=== PATIENT | female | born 1940 | race Caucasian/White ===

== ENCOUNTER → 2017-04-19 10:21 | Outpatient (CLI) | payer MEDICARE, SELFPAY ==
--- NOTE | 2017-04-19 10:43 | MR_ITS ---
MR humerus LT wo/w con CLINICAL INDICATION: Left upper arm mass, lipoma, evaluate for muscular involvement ITS.REASON: LEFT UPPER ARM MASS ORDERING PHYSICIAN: Ann Holguin MD PATIENT AGE: 76 years TECHNIQUE: Multiplanar multiecho sequences are performed without and with gadolinium enhancement. COMPARISON: None FINDINGS: Fat signal intensity which measures 6 cm cephalad to caudad, 2.5 cm transverse, and 1.9 cm AP is present within the left shoulder. This involves the midanterior aspect of the deltoid muscle and is contained by fascia laterally. No abnormal enhancement apparent. The fat has homogeneous signal intensity consistent with a lipoma. No other significant anomalies are evident. No bony involvement. No abnormal fluid collections. No abnormal enhancement. 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 No malignant features evident
[2017-04-19 10:48] LABS: Blood Urea Nitrogen 21 mg/dL (7-18); Creatinine,Serum 0.83 mg/dL (0.55-1.02); Estimated Glomerular Filt Rate 67 ml/min (>60); GFR (African American) 81 ML/MIN (>60)
== END ==
PROVIDERS: Visit Provider Surgery Surgical Oncology
DX: R22.32 Localized swelling, mass and lump, left upper limb (principal)
CPT/HCPCS: 36415; 73220; 82565; 84520; A9576

== ENCOUNTER → 2019-04-27 07:55 | Outpatient (CLI) | payer SELFPAY ==
--- NOTE | 2019-04-27 08:05 | CT_ITS ---
PROCEDURE: CT HEART W CALCIUM SCORE CLINICAL HISTORY: SCREENING Family history of heart disease COMPARISON: No exams were available for comparison TECHNIQUE: Axial images obtained with sagittal and coronal reformats. All CT scans at the facility use one or more dose reduction, viz: automated exposure control, ma/kV adjustment per patient size (including targeted exams where dose is matched to indication, i.e. head), or iterative reconstruction technique. FINDINGS: The coronary artery calcium score is 69 indicating mild calcific plaque burden with moderate cardiovascular disease risk. Incidental findings include changes of COPD with scarring in the lung bases. IMPRESSION: Mild calcific plaque burden with moderate cardiovascular disease risk Dictated by: Jose Enrique Chilel MD 04/27/2019 14:37 Electronically signed by Jose Enrique Chiell MD in [place] 04/27/2019 14:37
== END ==
PROVIDERS: PCP Family Medicine; Visit Provider Internal Medicine Cardiovascular Disease
DX: Z13.6 Encounter for screening for cardiovascular disorders (principal)
CPT/HCPCS: 75571

== ENCOUNTER 2022-10-26 10:42 | Emergency (ER) | payer MEDICARE, SELFPAY ==
--- NOTE | 2022-10-26 11:17 | XR_ITS ---
PROCEDURE INFORMATION: Exam: XR Right Wrist Exam date and time: 10/26/2022 11:26 AM Age: 82 years old Clinical indication: Pain; Wrist; Right; Additional info: Fall TECHNIQUE: Imaging protocol: Radiologic exam of the right wrist. Views: 3 or more views. COMPARISON: CR XR HAND RT MIN 3V 10/26/2022 11:23 AM FINDINGS: Bones/joints: Diffuse osteopenia is seen. Oblique mildly displaced 4th metacarpal fracture is noted. Soft tissues: Moderate soft tissues is seen around the fracture. IMPRESSION: 1. Diffuse osteopenia. Oblique mildly displaced 4th metacarpal fracture is noted. 2. Moderate soft tissues around the fracture.
--- NOTE | 2022-10-26 11:17 | XR_ITS ---
PROCEDURE INFORMATION: Exam: XR Right Hand Exam date and time: 10/26/2022 11:23 AM Age: 82 years old Clinical indication: Pain; Wrist; Right; Additional info: Fall TECHNIQUE: Imaging protocol: Radiologic exam of the right hand. Views: 3 or more views. COMPARISON: No relevant prior studies available. FINDINGS: Bones/joints: Diffuse osteopenia is present. Mildly displaced oblique fracture involving the 4th metacarpal. 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 Old 5th metacarpal fracture is noted. Soft tissues: Mild soft tissue swelling is seen around the fracture. IMPRESSION: 1. Diffuse osteopenia is present. 2. Mildly displaced oblique fracture involving the 4th metacarpal. Mild soft tissue swelling is seen around the fracture. 3. 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 4. Old 5th metacarpal fracture.
--- NOTE | 2022-10-26 11:17 | XR_ITS ---
PROCEDURE INFORMATION: Exam: XR Right Forearm Exam date and time: 10/26/2022 11:28 AM Age: 82 years old Clinical indication: Pain; Wrist; Right; Additional info: Fall TECHNIQUE: Imaging protocol: Radiologic exam of the right forearm. Views: 2 views. COMPARISON: CR XR WRIST RT MIN 3V 10/26/2022 11:26 AM FINDINGS: Bones/joints: Diffuse osteopenia is present. Soft tissues: Normal. IMPRESSION: 1. No acute findings. 2. Diffuse osteopenia.
[2022-10-26 11:20] VITALS: BP 132/81; PULSE 69; RESP 18; TEMP 36.7; O2SAT 97; BMI 25.1
--- NOTE | 2022-10-26 11:50 | EXP.UTC ---
Discharge Plan Disposition Patient Disposition: Home, Self-Care Condition: Good Prescriptions Prescriptions: No Action ibuprofen 600 MG Tablet 600 mg PO Q6HP PRN (Reason: Moderate Pain) Qty: 20 0RF Referrals Follow up/Referrals: Balaji Reynolds MD [Primary Care Provider] - See instructions Michel Guzmán DO [Staff Physician] - See instructions Activity Restrictions/Add. Instructions Additional Instructions/Restrictions: Rest the extremity, apply ice for 15 minutes as tolerated three or four times per day, Elevate the extremity as tolerated while you are resting. Take ibuprofen for pain if you can take it. If not, then take tylenol. Follow up with Dr. Guzmán (orthopedics). I put in a referral but you need to call his office and schedule an appointment. His office phone number will be on this paperwork. Follow up with your regular doctor. GO TO THE ER FOR ANY WORSENING SYMPTOMS Make sure you follow up with your eye doctor as we discussed. I recommend you see your primary care physician too. Clinical Impressions Clinical Impression: Fracture of fourth metacarpal bone of right hand, Hand fracture, right Instructions Patient Instructions: DI for a Hand Fracture, How to Take Care of Your Splint, Hand Fracture Discharge ED Provider: Macario Oro [facility] [place] HPI General Stated complaint: AO9/1@home, pain in Rt wrist Time Seen by Provider: 10/26/22 11:50 History of Present Illness Provider Complaint: She states that she tripped and fell on 10/22. Since then she has had right hand pain, swelling and bruising. She also has had right wrist pain. She denies any other injuries. Related Data Previous Rx's Medication Instructions Recorded ibuprofen 600 mg tablet 600 mg PO Q6HP PRN Moderate Pain 05/11/18 ##20 Allergies Allergy/AdvReac Type Severity Reaction Status Date / Time iodine Allergy Verified 10/26/22 12:21 [facility] Disclaimer: The information contained in this section may have been updated after the patient was seen, as this information can be updated by other users. Social History Smoking Status: Never smoker alcohol intake: never current occupational status: retired Travel in the last 8 weeks: None ROS Obtained: Yes All systems reviewed & no additional complaints except as documented Constitutional Constitutional: Denies chills and Denies fever(s) Eyes Eyes: Denies eye discharge ENT Ears, Nose, Mouth, and Throat: Denies dizziness, Denies otalgia and Denies sore throat Cardiovascular Cardiovascular: Denies chest pain Respiratory Respiratory: Denies shortness of breath, Denies chest congestion, Denies cough, Denies stridor and Denies wheezing Gastrointestinal Gastrointestingal: Denies nausea or vomiting Musculoskeletal Musculoskeletal: Reports as per HPI Integumentary/Breasts Skin/Breast: Reports as per HPI, Denies redness, Denies rash and Denies wounds Neurologic Neurologic: Denies dizziness and Denies paresthesias Allergic/Immunologic Allergic/Immunologic: Denies wheezing Physical Exam General General appearance: alert and in no apparent distress Head Head exam: atraumatic, normocephalic and normal inspection Eye Eye exam: Present normal appearance, PERRL and EOMI ENT ENT exam: Present normal exam, normal oropharynx, mucous membranes moist, TM's normal bilaterally and normal external ear exam Neck Neck exam: Present normal inspection, full ROM and trachea midline; Absent meningismus or lymphadenopathy Chest Chest inspection: Present normal inspection and symmetric chest wall rise; Absent tenderness Respiratory Respiratory exam: Present normal lung sounds bilaterally; Absent respiratory distress Cardiovascular Cardiovascular exam: Present regular rate and normal rhythm; Absent JVD Abdominal Exam Abdominal exam: Present soft and normal bowel sounds; Absent distention, tenderness or guarding Extremities Exam Extre
[2022-10-26 13:19] VITALS: BP 132/81; PULSE 69; RESP 18; TEMP 36.7; O2SAT 97
== END 2022-10-26 13:00 | disposition home or self-care (01) ==
PROVIDERS: Emergency Provider Nurse Practitioner Family; PCP Family Medicine
DX: S62.304A Unspecified fracture of fourth metacarpal bone, right hand, initial encounter for closed fracture (principal); M85.841 Other specified disorders of bone density and structure, right hand; W19.XXXA Unspecified fall, initial encounter; M85.831 Other specified disorders of bone density and structure, right forearm
CPT/HCPCS: 73090; 73110; 73130; 99204; 99212; G0463

== ENCOUNTER → 2022-11-11 14:24 | Outpatient (CLI) | payer MEDICARE, SELFPAY ==
--- NOTE | 2022-11-11 14:28 | XR_ITS ---
FINAL REPORT CLINICAL HISTORY: Rt hand fx COMPARISON: 10/26/2022 FINDINGS: RIGHT HAND The oblique mildly displaced fracture of the fourth metacarpal, seen on the prior exam of October 26, is once again identified and there has been bony resorption along the fracture line. The fracture line does not extend into the joint space. The visualized joint spaces are normally aligned. The soft tissues are unremarkable. Degenerative changes once again noted, particularly in the distal inner phalangeal joints. IMPRESSION: There has been bony resorption along the oblique fracture line of the mid fourth metacarpal shaft fracture since the prior films of October 26. Reviewed, Interpreted and Dictated by Nawaf Sousa MD Transcribed by Cookie Hanson Authenticated and [facility]
== END ==
PROVIDERS: PCP Family Medicine; Visit Provider Orthopaedic Surgery
DX: S62.304D Unspecified fracture of fourth metacarpal bone, right hand, subsequent encounter for fracture with routine healing (principal); W01.10XD Fall on same level from slipping, tripping and stumbling with subsequent striking against unspecified object, subsequent encounter
CPT/HCPCS: 73130